=== PATIENT | male | born 1985 | race American Indian/Alaskan Native ===

== ENCOUNTER 2020-05-05 18:38 | Emergency (ER) | payer SELFPAY ==
[2020-05-05 18:45] VITALS: BP 148/90
[2020-05-05] MEDS ORDERED: cephALEXin 500 MG CAP PO ONE (22:34)
[2020-05-05] MEDS ORDERED: LIDOCAINE-MPF (1%) 10 MG/1 ML VIAL 5 ML INFILTRATI ONE (22:34)
[2020-05-05] MEDS ORDERED: traMADol 50 MG TAB PO ONE (22:34)
--- NOTE | 2020-05-05 23:06 | Emergency Department Report ---
Abscess Boil HPI - HPI Chief Complaint: Skin/Abscess/Foreign Body Stated Complaint: BOIL Time Seen by Provider: 05/05/20 22:34 Location: Back (right posterior shoulder 3x2 cm abscess) History: No Fever, No Pain, No Purulent Drainage, No Numbness, No Foreign Body, No Insect Bite Addl Reference Text: 2x2 abscess , fluctuant, erythema, painful to touch Home Medications: Previous Rx's Medication Instructions Recorded Last Taken Type methylPREDNISolone [Medrol 4MG 4 mg PO ONCE #1 tab.ds.pk 01/27/20 Unknown Rx DOSEPAK (21 tabs)] cephALEXin [Keflex] 500 mg PO Q8HR 7 Days #21 cap 05/05/20 Unknown Rx traMADoL [Ultram] 50 mg PO Q6HR PRN #12 tablet 05/05/20 Unknown Rx Allergies/Adverse Reactions: Allergies Allergy/AdvReac Type Severity Reaction Status Date / Time No Known Allergies Allergy Unverified 01/27/20 09:25 ED Review of Systems ROS: Stated complaint: BOIL Other details as noted in HPI Constitutional: denies: chills, fever Eyes: denies: eye pain, eye discharge, vision change ENT: denies: ear pain, throat pain Respiratory: denies: cough, shortness of breath, wheezing Cardiovascular: denies: chest pain, palpitations Endocrine: no symptoms reported Gastrointestinal: denies: abdominal pain, nausea, diarrhea Genitourinary: denies: urgency, dysuria Musculoskeletal: denies: back pain, joint swelling, arthralgia Skin: other (abscess). denies: rash, lesions Neurological: denies: headache, weakness, paresthesias Psychiatric: denies: anxiety, depression ED Past Medical Hx - Past Medical History Previous Medical History?: No - Surgical History Past Surgical History?: No - Social History Smoking Status: Current Every Day Smoker Substance Use Type: None - Medications Home Medications: Home Medications Medication Instructions Recorded Confirmed Last Taken Type methylPREDNISolone [Medrol 4MG 4 mg PO ONCE #1 tab.ds.pk 01/27/20 Unknown Rx DOSEPAK (21 tabs)] cephALEXin [Keflex] 500 mg PO Q8HR 7 Days #21 cap 05/05/20 Unknown Rx traMADoL [Ultram] 50 mg PO Q6HR PRN #12 tablet 05/05/20 Unknown Rx ED Abscess Boil Physical Exam - Exam General: Vital signs noted. No distress. Alert and acting appropriately. 2x2 right medial posterior shoulder abscess Size: 2 cm Exam: Yes Tenderness, Yes Fluctuance, Yes Surrounding Cellulites/Erythema, Yes Normal Neurologic Exam, Yes Normal Circulation, No Lymphangitis, No Crepitation, No Heart Murmur I & D Note - I & D Note I & D Note: Right medial medial post anterior shoulder abscess 2 x 2 cm erythema fluctuant painful to touch warm to touch. Site cleaned with Betadine solution. Anesthesia with 1% lidocaine 5 cc, incision with 11 blade scalpel x1. Loculations broken up with 6 inch blunt forceps. Moderate purulent drainage noted. Wound irrigated with 40 cc sterile saline. Patient declines iodoform wick. Sterile dressing is applied all bleeding is controlled patient given wound care instructions. Patient tolerated procedure with minimal distress. ED Course Vital Signs 05/05/20 18:42 Temperature 98.6 F Pulse Rate 89 Respiratory 18 Rate Blood Pressure 148/90 [Right] O2 Sat by Pulse 97 Oximetry Critical care attestation.: If time is entered above; I have spent that time in minutes in the direct care of this critically ill patient, excluding procedure time. ED Medical Decision Making - Medical Decision Making Right posterior shoulder abscess for I&D see procedure note. All bleeding is controlled. Sterile dressing is intact. Patient given wound care instructions and verbalized understanding of same. Patient DC'd to home with prescriptions. Will follow-up with primary care doctor in 2 to 3 days for wound check. Return to ED should symptoms worsen. Patient verbalized agreement and understanding with discharge plan. Patient DC'd home in stable condition at this time. ED Disposition Clinical Impression: Abscess of shoulder Disposition: DC-01 TO HOME OR SELFCARE Is pt being admited?: No Does the pt Need Aspirin: No Condition: Stable Instructions: Abscess Incision and Drainage (ED) Prescriptions: cephALEXin [Keflex] 500 mg PO Q8HR 7 Days #21 cap traMADoL [Ultram] 50 mg PO Q6HR PRN #12 tablet PRN Reason: Pain Referrals: CIRILO MILES MD [Staff Physician] - 3-5 Days Forms: Work/School Release Form(ED) Time of Disposition: 23:08
== END 2020-05-05 23:15 | disposition home or self-care (01) ==
LOC: ED 18:38
DX: L02.413 Cutaneous abscess of right upper limb (principal)
CPT/HCPCS: 99282